=== PATIENT | male | born 1970 | race Caucasian/White ===

== ENCOUNTER 2022-05-22 08:07 | Emergency (ER) | payer OTHER, BC ==
[~2022-05-22] VITALS: Ht 177.8 cm; Wt 100.0 kg
[2022-05-22 08:16] VITALS: BP 84/54
[2022-05-22] MEDS ORDERED: ondansetron/PF 4mg/2ml inj IV ONE (08:35)
[2022-05-22] MEDS ORDERED: fentaNYL/PF 50MCG/1 ML 2ML syringe IV ONE (08:35)
[2022-05-22] MEDS ORDERED: normal saline 1000ml 1,000 ML IV ONE (08:35)
[2022-05-22] MEDS ORDERED: morphine 4 MG/ML inj SYRINge IV ONE (09:35)
[2022-05-22] MEDS ORDERED: ketorolac trometh. 30mg/ml inj. IV ONE (09:35)
--- NOTE | 2022-05-22 09:41 | NUR ---
ATTEMPT EKG, PT AT CT CURRENTLY.
[2022-05-22] MEDS ORDERED: sulfamethoxazole/trimethoprim DS (800/160mg) tablet PO ONE (10:10)
[2022-05-22] MEDS ORDERED: bacitracin 15gm ointment TP ONE (10:15)
[2022-05-22] MEDS ORDERED: HYDROcodone/acetaminophen 5mg/325mg tablet PO ONE (10:15)
[2022-05-22] MEDS ORDERED: ONDA4TAB12 PO (10:21)
[2022-05-22] MEDS ORDERED: HYDR-3965 PO (10:21)
[2022-05-22] MEDS ORDERED: SULF1TAB49 PO (10:21)
== END 2022-05-22 12:10 | disposition home or self-care (01) ==
LOC: ER 08:07
DX: S82.142A Displaced bicondylar fracture of left tibia, initial encounter for closed fracture (principal); S62.511A Displaced fracture of proximal phalanx of right thumb, initial encounter for closed fracture; M79.605 Pain in left leg; Z79.2 Long term (current) use of antibiotics; Z79.899 Other long term (current) drug therapy; V29.208A Unspecified rider of other motorcycle injured in collision with unspecified motor vehicles in nontraffic accident, initial encounter; Y93.89 Activity, other specified; Y92.89 Other specified places as the place of occurrence of the external cause; Y99.8 Other external cause status
CPT/HCPCS: 29505; 71045; 73140; 73564; 73700; 93005; 96361; 96374; 96375; 99285; J1885; J2405; J3010; J7030